=== PATIENT | male | born 1990 | race African-American/Black ===

== ENCOUNTER 2017-11-07 17:32 | Emergency (ER) | payer OTHER ==
[~2017-11-07] VITALS: Ht 170.2 cm; Wt 65.8 kg
[2017-11-07 17:58] VITALS: BP 134/82
[2017-11-07] MEDS: AZITHROMYCIN 250 MG TABLET. PO ONE (18:32)
[2017-11-07] MEDS: cefTRIAXone IM 250 MG VIAL IM ONE (18:32)
--- NOTE | 2017-11-07 18:47 | PHYS DOC ---
Past Medical History Past Medical History: No Pertinent History Past Surgical History: No Surgical History Alcohol Use: None Drug Use: None Adult General Chief Complaint Chief Complaint: PENIS PROBLEM HPI HPI Patient is a 27 year old male who presents with discharge from his penis. The patient states that he thinks he has contracted a sexually transmitted disease. He noticed this discharge for the past 2 days. He denies rashes or other lesions to the penis. He denies fever, nausea or vomiting. The patient is requesting presumptive treatment in the emergency department. Review of Systems Review of Systems Constitutional: Denies fever or chills [] Eyes: Denies change in visual acuity, redness, or eye pain [] HENT: Denies nasal congestion or sore throat [] Respiratory: Denies cough or shortness of breath [] Cardiovascular: No additional information not addressed in HPI [] GI: Denies abdominal pain, nausea, vomiting, bloody stools or diarrhea [] : See history of present illness Musculoskeletal: Denies back pain or joint pain [] Integument: Denies rash or skin lesions [] Neurologic: Denies headache, focal weakness or sensory changes [] Endocrine: Denies polyuria or polydipsia [] All other systems were reviewed and found to be within normal limits, except as documented in this note. Current Medications Current Medications Current Medications Medications (Trade) Dose Ordered Sig/[facility] Start Time Stop Time Status Last Admin Dose Admin Azithromycin (Zithromax) 1,000 mg 1X ONCE 11/07/17 18:15 11/07/17 18:28 DC 11/07/17 18:32 1,000 MG Ceftriaxone Sodium (Rocephin Im) 250 mg 1X ONCE 11/07/17 18:15 11/07/17 18:28 DC 11/07/17 18:32 250 MG Allergies Allergies Allergies Coded Allergies Type Severity Reaction Last Updated Verified No Known Drug Allergies 11/07/17 No Physical Exam Physical Exam Constitutional: Well developed, well nourished, no acute distress, non-toxic appearance. [] Cardiovascular:Heart rate regular rhythm, no murmur [] Lungs & Thorax: Bilateral breath sounds clear to auscultation [] Abdomen: Bowel sounds normal, soft, no tenderness, no masses, no pulsatile masses. [] Neurologic: Alert and oriented X 3, normal motor function, normal sensory function, no focal deficits noted. [] Psychologic: Affect normal, judgement normal, mood normal. [] Current Patient Data Vital Signs Vital Signs Date Time Temp Pulse Resp B/P (MAP) Pulse Ox O2 Delivery O2 Flow Rate FiO2 11/07/17 17:58 99.0 77 18 134/82 (99) 99 Room Air 99.0 EKG EKG [] Radiology/Procedures Radiology/Procedures [] Course & Med Decision Making Course & Med Decision Making Pertinent Labs and Imaging studies reviewed. (See chart for details) []The patient was given Rocephin and Zithromax in the emergency department. He has been instructed to refrain from sexual activity for 2 weeks to allow time for the antibiotics to work. He is in agreement with this plan. He is aware we will call only if the cultures are positive. Staff Physician Addendum: I was working in the ER during the course of this patient's visit. I was available for consultation as needed, but I was not directly involved in the care of this patient. Dragon Disclaimer Dragon Disclaimer This electronic medical record was generated, in whole or in part, using a voice recognition dictation system. Departure Departure Impression: Primary Impression: Possible exposure to STD Disposition: 01 HOME, SELF-CARE Condition: STABLE Referrals: NO PCP (PCP) Patient Instructions: Sexually Transmitted Disease, [id number] Additional Instructions: We will only call with positive results. Make sure that you have an updated phone number with registration. Refrain from sexual activity for 2 weeks to allow time for the antibiotics to work. Follow-up with your primary care provider if not improving in 3 days or return to the emergency department if worsening. BRANDON MEDINA APRN Nov 07, 2017 18:47 MONIQUE CASSIDY MD Nov 08, 2017 03:09
== END 2017-11-07 18:55 | disposition home or self-care (01) ==
LOC: ER 17:32
DX: R36.9 Urethral discharge, unspecified (principal)
CPT/HCPCS: 87491; 87591; 96372; 99284; J0696; Q0144